=== PATIENT | female | born 1945 | race Caucasian/White ===

== ENCOUNTER 2021-06-07 21:33 | Inpatient (IN) | payer MEDICARE ==
[~2021-06-07] VITALS: Ht 154.9 cm; Wt 70.0 kg
[~2021-06-07 21:33] MED LIST: DIVALPROEX SOD250 MG PO; FENOFIBRATE145 MG PO; GABAPENTIN100 MG PO; LISINOPRIL20 MG PO; OMEPRAZOLE DR40 MG; PIOGLITAZONE HC30 MG PO; POTASSIUM CHLO10 MEQ PO; ROSUVASTATIN CA20 MG PO; TRAZODONE100 MG PO; XELPROS0.005 % OU
--- NOTE | 2021-06-07 23:00 | NUR ---
TO ROOM FOR BEDSIDE TRIAGE
--- NOTE | 2021-06-07 23:25 | NUR ---
PCXR IN ROOM.
[2021-06-07 23:48] LABS: HEMATOCRIT 34.4 % (37.0-47.0); HEMOGLOBIN 11.1 g/dl (12.0-16.0); IMMATURE GRANULOCYTES 0.3 % (0.0-5.0); MEAN CELL VOLUME 89.1 fL CALC (80.0-100.0); MEAN CORPUSCULAR HGB 28.8 pG CALC (26.0-32.0); MEAN CORPUSCULAR HGB CONC 32.3 g/dL CAL (32.0-36.0); NEUT# 4.54 thou/uL (2.00-7.15); RED BLOOD COUNT 3.86 mill/uL (4.20-5.60); RED CELL DISTRI WIDTH 13.6 % (11.5-15.5)
--- NOTE | 2021-06-08 00:04 | NUR ---
ASSISTED TO BATHROOM. PT INCONTINENT OF SOFT STOOL. ASSIST TO CLEAN UP.
[2021-06-08 00:05] LABS: ALBUMIN 4.1 g/dL (3.2-5.0); ALKALINE PHOSPHATASE 46 u/l (38-126); ANION GAP 14 (6-22 (CALC)); BUN 14 mg/dL (8-23); BUN/CREATININE RATIO 18 (12-20 (CALC)); CARBON DIOXIDE 24 mmol/l (22-30); CHLORIDE 99 mmol/l (95-108); CREATININE 0.8 mg/dL (0.5-1.0); GFR > 60 ML/MIN (>=60 (CALC)); GFR FOR AFR.AMER. > 60 ML/MIN (>=60 (CALC)); POTASSIUM 3.6 mmol/l (3.5-5.1); SGOT/AST 36 u/l (9-36); SODIUM 134 mmol/l (137-146); TOTAL PROTEIN 7.1 g/dL (6.3-8.2)
[2021-06-08 00:16] LABS: MYOGLOBIN 150 ng/mL (0 - 62)
[2021-06-08] MEDS ORDERED: [UNRECOGNIZED DRUG - CODE] PO (01:48)
[2021-06-08] MEDS ORDERED: CLOTRIMAZOLE1 % VA (01:49)
[2021-06-08] MEDS ORDERED: CYANOCOBAL1000 MCG/M IM (01:50)
[2021-06-08] MEDS ORDERED: CLONIDINE0.1 MG PO (01:51)
[2021-06-08] MEDS ORDERED: METOPROLOL SUCC50 MG PO (01:51)
--- NOTE | 2021-06-08 02:10 | NUR ---
DR. BRITO IN ROOM TO DISCUSS DIAGNOSTIC RESULTS AND TX PLAN.
--- NOTE | 2021-06-08 02:25 | NUR ---
VERENA SENIOR INTERIOR DESIGNER IN ROOM TO COLLECT ABG.
--- NOTE | 2021-06-08 03:00 | NUR ---
PT'S SPOUSE CALLS OUT THAT PT CANNOT BREATHE. DISTRESS CALL ANSWERED IMMEDIATELY. UPON ENTERING ROOM PT IS DYSPNIC WITH OBVIOUS INCREASED WORK OF BREATHING. TRIPOD POSITION. PALE AND DIAPHORETIC. SPO2 80'S. 02 SWITCHED TO NRB. RT PAGED. CALLED IN.
--- NOTE | 2021-06-08 04:45 | NUR ---
PT WAS PUT ON BIPAP BY [place] TELEGRAPHIC TYPEWRITER MECHANIC. SPO2 AT 100%. PT FEELS ANXIOUS ABOUT BIPAP MASK AD REPEATEDLY TRIES TO REMOVE. PT AND SPOUSE DECLINE OFFERS FOR MEDICAL SOFT LIMB RESTRAINTS. SPOUSE AGREES TO STAY AT BEDSIDE AND ENCURAGE PT TO KEEP BIPAP ON AND CALL IF PT REMOVES. PCXR DONE, SEE RADIOLOGY REPORT. SECOND IV STARTED TO R-FA #20G X1 ATTEMPT. ZOFRAN, LABETALOL, DECADRON, LASIX, ZITHROMAX, AND ROCEPHIN. SEE E-MAR FOR ADMINISTRATION DETAILS.
--- NOTE | 2021-06-08 04:55 | NUR ---
PT ASSISTED ONTO BED SIMPSON. 200ML CLEAR YELLOW URINE EMPTIED. URINE SAMPLE COLLECTED.
--- NOTE | 2021-06-08 05:22 | NUR ---
PT SLEEPING. APPEARS COMFORTABLE AND IN NO DISTRESS. SPO2 100%. SR 90S. NIBP 125/53. BIPAP ON. SPOUSE AT BEDSIDE. CALL ARRIAGA WITHIN REACH.
[2021-06-08 05:55] LABS: URINE BILIRUBIN - DIPSTICK NEGATIVE (NEGATIVE); URINE BLOOD DIPSTICK TRACE-INTACT (NEGATIVE); URINE COLOR YELLOW; URINE GLUCOSE - DIPSTICK NEGATIVE (NEGATIVE); URINE KETONE 15 mg/dL (NEGATIVE); URINE NITRITE - DIPSTICK POSITIVE (Negative); URINE PROTEIN - DIPSTICK 100 mg/dL (NEG-TRACE); URINE SPECIFIC GRAVITY >=1.030; URINE UROBILINOGEN - DIPSTICK 0.2 E.U./dL (0.2)
[2021-06-08 05:56] LABS: URINE BACTERIA MODERATE hpf; URINE EPITHELIAL CELLS MODERATE EPI/hpf (0-FEW); URINE LEUK ESTERASE NEGATIVE (NEGATIVE)
--- NOTE | 2021-06-08 07:56 | NUR ---
TITRATED PARAMETERS PER PT SPO2. LEELEE WELL AT THIS TIME. CEMENT CONTRACTOR TO MONITOR.
--- NOTE | 2021-06-08 11:21 | NUR ---
ULTRASOUND RN CAME A DID A CENTRA LINE
[2021-06-08] MEDS ORDERED: DEPAKOTE ER250 M1 PO (14:47)
[2021-06-08] MEDS ORDERED: PIOGLITAZONE HC45 MG PO (14:51)
[2021-06-08] MEDS ORDERED: GABAPENTIN400 M2 PO (14:54)
[2021-06-08] MEDS ORDERED: GABAPENTIN600 MG PO (14:56)
[2021-06-08] MEDS ORDERED: OMEPRAZOLE20 M3 PO (14:59)
[2021-06-08] MEDS ORDERED: TRIGLIDE160 MG PO (15:01)
[2021-06-08] MEDS ORDERED: HYDROCHLOROTH12.5 MG PO (15:02)
[2021-06-08] MEDS ORDERED: IRBESARTAN75 MG PO (15:03)
[2021-06-08] MEDS ORDERED: TRAMADOL HYDROC50 M1 PO (15:04)
[2021-06-08 17:55] LABS: ACT PARTIAL THROMBO TIME 23.6 SECONDS (20.0-32.5); PROTHROMBIN TIME 10.9 SECONDS (9.0-12.5)
--- NOTE | 2021-06-08 18:53 | NUR ---
PATIENT WAS TRANSFER TO [facility] ER LIKE A NONSTEMIE PATIENT WITH A HEPARINE DRIP RUNNING AT 800UNITS/16ML/HR FOR A RT ARM. PATIENT IS TRANSPORTED IN STRETCHER BY [facility], [facility] PRESSER GIVE REPORT TO OBDULIA JACKSON MRSN FLOOR PATIENT IS GOING TO ROOM 783. AND CHARGE NURSE AWARE
[2021-06-08 18:58] VITALS: BP 135/66
== END 2021-06-08 18:53 | disposition short-term general hospital (02) | DRG 177 ==
LOC: ED 21:33 → ED-I 06-08 04:35 → ED 06-08 04:49 → ED-I 06-08 04:50
PROVIDERS: Emergency Medicine; ADMIT Hospitalist; ATTEND Hospitalist
PROC: 5A09357 Assistance with Respiratory Ventilation, Less than 24 Consecutive Hours, Continuous Positive Airway Pressure (ICD-10-PCS; principal; 2021-06-08)
PROC: XW033E5 Introduction of Remdesivir Anti-infective into Peripheral Vein, Percutaneous Approach, New Technology Group 5 (ICD-10-PCS; 2021-06-08)
DX: U07.1 COVID-19 (principal); J12.82 Pneumonia due to coronavirus disease 2019; J96.01 Acute respiratory failure with hypoxia; I21.4 Non-ST elevation (NSTEMI) myocardial infarction; I16.1 Hypertensive emergency; I10 Essential (primary) hypertension; E11.40 Type 2 diabetes mellitus with diabetic neuropathy, unspecified; E78.5 Hyperlipidemia, unspecified; Z87.440 Personal history of urinary (tract) infections
CPT/HCPCS: J1644; Q9967